=== PATIENT | female | born 1970 | race Caucasian/White ===

== ENCOUNTER 2016-06-08 17:58 | Emergency (ER) | payer MEDICAID ==
[~2016-06-08] VITALS: Ht 144.8 cm; Wt 82.0 kg
[~2016-06-08 17:58] MED LIST: LISI10TA5 PO; METF10002 PO; SITA100T6 PO
[2016-06-08] MEDS ORDERED: ONDANSETRON HCL 4MG/2ML VIAL IV STA (23:01)
[2016-06-08] MEDS ORDERED: SODIUM CHLORIDE 0.9% 1,000 ML IV ONE (23:01)
[2016-06-08] MEDS ORDERED: KETOROLAC 30MG/ML VIAL IV STA (23:01)
[2016-06-08 23:14] LABS: CLARITY URINE CLEAR (CLEAR); COLOR URINE YELLOW (YELLOW); GLUCOSE URINE NEGATIVE (NEGATIVE); KETONES URINE NEGATIVE (NEGATIVE); LEUKOCYTE ESTERASE URINE 1+ (NEGATIVE); NITRITE URINE NEGATIVE (NEGATIVE); OCCULT BLOOD URINE NEGATIVE (NEGATIVE); PH URINE 6.5 (4.5-8.0); PROTEIN URINE NEGATIVE (NEGATIVE); UROBILINOGEN URINE 0.2 E.U./dL (0.2-1.0)
[2016-06-08 23:32] LABS: RBC URINE 0-2 /hpf (0-2); SQUAMOUS EPITHELIAL CELL URINE RARE /lpf (RARE/1+)
[2016-06-08 23:33] LABS: BACTERIA URINE TRACE
[2016-06-08 23:35] LABS: CHLORIDE 102 mEq/L (98-107); EOSINOPHILS % 2.6 % (0.0-5.0); HEMATOCRIT. 41.4 % (36.0-48.0); HEMOGLOBIN. 14.2 g/dL (12.0-16.0); INDEX HEMOLYSI 1 (1-3); INDEX ICTERIC 1 (1-4); INDEX LIPEMIC 1 (1-3); LYMPHOCYTES % 30.6 % (20.0-50.0); MEAN CORPUSCULAR HEMOGLOBIN 28.9 pg (28.0-32.0); MEAN CORPUSCULAR HGB CONC 34.3 g/dL (31.0-37.0); MEAN CORPUSCULAR VOLUME 84.4 fL (81.0-99.0); MEAN PLATELET VOLUME 8.7 fl (7.4-10.4); MONOCYTES % 8.7 % (2.0-8.0); NEUTROPHILS % 57.1 % (40.0-76.0); PLATELET 208 x1000/uL (130-400); RED BLOOD CELL COUNT 4.91 mill/uL (4.2-5.4); RED CELL DISTRIBUTION WIDTH 13.3 % (11.6-14.6); WHITE BLOOD COUNT 8.2 x1000/uL (4.5-11.0)
[2016-06-08 23:39] LABS: PROTHROMBIN TIME 10.9 sec
[2016-06-08 23:43] LABS: ALANINE AMINOTRANSFERASE 28 IU/L (13-61); ALBUMIN 3.4 g/dL (3.4-5.0); ANION GAP 13; CALCIUM 9.1 mg/dL (8.5-10.1); CARBON DIOXIDE 29 mEq/L (21-32); LIPASE 148 IU/L (73-393); UREA NITROGEN BLOOD 11 mg/dL (7-21); eGFR > 60 mL/min (>60)
[2016-06-09 00:13] VITALS: BP 130/60
== END 2016-06-09 01:49 | disposition home or self-care (01) ==
LOC: ER 21:08
DX: N39.0 Urinary tract infection, site not specified (principal); E11.9 Type 2 diabetes mellitus without complications; I10 Essential (primary) hypertension; Z79.4 Long term (current) use of insulin; Z79.899 Other long term (current) drug therapy
CPT/HCPCS: 36415; 74176; 80053; 81001; 81025; 83690; 85025; 85610; 96361; 96374; 96375; 99285; J1885; J2405; J7030

== ENCOUNTER 2017-03-19 23:19 | Emergency (ER) | payer MEDICAID ==
[~2017-03-19] VITALS: Ht 157.5 cm; Wt 82.0 kg
[~2017-03-19 23:19] MED LIST changes: +SITA100T11 PO; -SITA100T6 PO
[2017-03-19 23:32] VITALS: BP 179/81
== END 2017-03-20 04:10 | disposition left against medical advice (07) ==
LOC: ER 23:19
DX: Z53.21 Procedure and treatment not carried out due to patient leaving prior to being seen by health care provider (principal)

== ENCOUNTER 2018-10-07 14:43 | Emergency (ER) | payer MEDICAID ==
[~2018-10-07] VITALS: Ht 152.4 cm; Wt 73.0 kg
[~2018-10-07 14:43] MED LIST changes: +METF-416 PO; -METF10002 PO
[2018-10-07] MEDS ORDERED: MORPHINE SULFATE 4 MG/ML CPJ (NOT FOR IM USE) IV STA (16:47)
[2018-10-07] MEDS ORDERED: SODIUM CHLORIDE 0.9% 1,000 ML IV ONE (16:47)
[2018-10-07] MEDS ORDERED: ONDANSETRON HCL 4MG/2ML INJ IV STA (16:47)
[2018-10-07] MEDS ORDERED: FAMOTIDINE 20MG/2ML VIAL IV STA (16:47)
[2018-10-07 17:07] LABS: CLARITY URINE CLEAR (CLEAR); COLOR URINE YELLOW (YELLOW); KETONES URINE 1+ (NEGATIVE); LEUKOCYTE ESTERASE URINE NEGATIVE (NEGATIVE); NITRITE URINE NEGATIVE (NEGATIVE); OCCULT BLOOD URINE TRACE (NEGATIVE); PH URINE 6.5 (4.5-8.0); PROTEIN URINE 2+ (NEGATIVE); SPECIFIC GRAVITY URINE 1.023 (1.005-1.030); UROBILINOGEN URINE 0.2 E.U./dL (0.2-1.0)
[2018-10-07 17:25] LABS: HEMATOCRIT. 45.1 % (36.0-48.0); HEMOGLOBIN. 15.6 g/dL (12.0-16.0); MEAN CORPUSCULAR HEMOGLOBIN 29.5 pg (28.0-32.0); MEAN CORPUSCULAR VOLUME 85.7 fL (81.0-99.0); MEAN PLATELET VOLUME 8.6 fl (7.4-10.4); PLATELET 199 x1000/uL (130-400); RED BLOOD CELL COUNT 5.27 mill/uL (4.2-5.4); RED CELL DISTRIBUTION WIDTH 13.7 % (11.6-14.6)
[2018-10-07 17:29] LABS: CHLORIDE 99 mEq/L (98-107)
[2018-10-07 17:34] LABS: ETHANOL BLOOD < 10 mg/dL
[2018-10-07 17:45] LABS: HCG SCREEN NEGATIVE
[2018-10-07 17:53] LABS: PLATELET ESTIMATE NORMAL
[2018-10-07 21:42] VITALS: BP 143/70
== END 2018-10-07 21:53 | disposition home or self-care (01) ==
LOC: ER 14:43
DX: K29.00 Acute gastritis without bleeding (principal)
CPT/HCPCS: 36415; 74176; 80053; 80320; 81003; 82962; 83690; 84484; 84703; 85025; 96374; 96375; 99284; J2270; J2405; J3490; J7030; G0480

== ENCOUNTER 2019-01-01 09:59 | Inpatient (IN) | payer MEDICAID ==
[~2019-01-01] VITALS: Ht 154.9 cm; Wt 74.9 kg
[2019-01-01] MEDS ORDERED: SODIUM CHLORIDE 0.9% 1,000 ML IV ONE (10:22)
[2019-01-01 10:42] LABS: BASOPHILS % 1.2 % (0.0-2.0); EOSINOPHILS % 0.4 % (0.0-5.0); HEMATOCRIT. 43.6 % (36.0-48.0); HEMOGLOBIN. 15.2 g/dL (12.0-16.0); MEAN CORPUSCULAR HEMOGLOBIN 29.7 pg (28.0-32.0); MEAN CORPUSCULAR VOLUME 85.3 fL (81.0-99.0); MEAN PLATELET VOLUME 9.3 fl (7.4-10.4); NEUTROPHILS % 76.4 % (40.0-76.0); PLATELET 245 x1000/uL (130-400); RED BLOOD CELL COUNT 5.11 mill/uL (4.2-5.4); RED CELL DISTRIBUTION WIDTH 13.7 % (11.6-14.6)
[2019-01-01 10:46] LABS: CHLORIDE 96 mEq/L (98-107)
[2019-01-01 10:49] LABS: HCG SCREEN NEGATIVE; PROTHROMBIN TIME 10.1 sec (9.6-11.0)
[2019-01-01 10:50] LABS: ETHANOL BLOOD < 10 mg/dL
[2019-01-01 10:53] LABS: LDL CHOLESTEROL 107 mg/dL (5-100)
[2019-01-01] MEDS ORDERED: LABETALOL 5MG/ML SYR 20 MG/4 ML SYRINGE IV ONE (11:15)
[2019-01-01] MEDS ORDERED: ASPIRIN 325MG TABLET PO ONE (11:15)
[2019-01-01 11:37] LABS: C REACTIVE PROTEIN QUANT 5.7 mg/L (0.0-3.0)
[2019-01-01 11:40] LABS: CREATINE KINASE MB FRACTION 1.6 ng/mL (0.5-3.6)
[2019-01-01] MEDS ORDERED: ASPIRIN 300MG SUPP PR ONE (11:45)
[2019-01-01] MEDS ORDERED: INSULIN REGULAR (HUMULIN R) 300UNITS/3ML IV ONE (12:45)
[2019-01-01] MEDS ORDERED: IOHEXOL-350 100 ML BOTTLE ONE (13:45)
[2019-01-01] MEDS ORDERED: GUAIFENESIN 200MG/10ML SUGAR FREE UDC PO PRN (14:15)
[2019-01-01] MEDS ORDERED: IPRATROPIUM/ALBUTEROL 0.5-3(2.5)MG/3ML NEB NEB PRN (14:15)
[2019-01-01] MEDS ORDERED: NA PHOS,M-B/NA PHOS,DI-BA ENEMA 118ML PR PRN (14:15)
[2019-01-01] MEDS ORDERED: MAGNESIUM/ALUMINUM HYDROXIDE/SIMETHICONE 30ML UDC PO PRN (14:15)
[2019-01-01] MEDS ORDERED: CLONIDINE 0.1MG TABLET PO PRN (14:15)
[2019-01-01] MEDS ORDERED: ONDANSETRON HCL 4MG/2ML INJ IV PRN (14:15)
[2019-01-01] MEDS ORDERED: DEXTROSE 50% WATER 50ML SYRINGE IV PRN (14:15)
[2019-01-01] MEDS ORDERED: NITROGLYCERIN 0.4MG TABLET SL SL PRN (14:15)
[2019-01-01] MEDS ORDERED: DOCUSATE SODIUM 100MG CAPSULE PO PRN (14:15)
[2019-01-01 16:50] LABS: VITAMIN B12 SERUM > 2000.0 pg/mL (211-911)
[2019-01-01 17:00] VITALS: BP 132/65
[2019-01-01] MEDS: BLOOD SUGAR DIAGNOSTIC STRIP TEST SCH ×2 (17:25→21:20)
[2019-01-01] MEDS: CLOPIDOGREL 75MG TABLET PO SCH (17:43)
[2019-01-01] MEDS: ENOXAPARIN 40MG/0.4ML SYR SUBCUT SCH (17:45)
[2019-01-01] MEDS: INSULIN LISPRO 100 UNITS/ML SUBCUT SCH ×2 (17:47→21:30)
[2019-01-01 18:00] VITALS: BP 142/88
[2019-01-01 20:00] VITALS: BP 119/71
[2019-01-01] MEDS: FAMOTIDINE 20MG TABLET PO SCH (21:20)
[2019-01-01] MEDS: ATORVASTATIN CALCIUM 10MG TABLET PO SCH (21:20)
[2019-01-01 22:00] VITALS: BP 138/103
[2019-01-01] MEDS ORDERED: INSULIN GLARGINE UD 100 UNITS/ML SYR SUBCUT SCH (22:00)
[2019-01-01] MEDS: INSULIN GLARGINE UD 100 UNITS/ML SYR SUBCUT SCH (22:39)
[2019-01-02] VITALS (11 sets, daily range): BP systolic 132–158; BP diastolic 70–92
[2019-01-02] MEDS: ZOLPIDEM TARTRATE 5MG TABLET PO PRN ×2 (00:54→22:29)
[2019-01-02] MEDS: BLOOD SUGAR DIAGNOSTIC STRIP TEST SCH ×4 (08:29→20:28)
[2019-01-02] MEDS: INSULIN LISPRO 100 UNITS/ML SUBCUT SCH ×4 (08:37→20:42)
[2019-01-02] MEDS: CLOPIDOGREL 75MG TABLET PO SCH (08:39)
[2019-01-02] MEDS: FAMOTIDINE 20MG TABLET PO SCH ×2 (08:39→20:27)
[2019-01-02] MEDS: ACETAMINOPHEN 325MG TABLET PO PRN (14:50)
[2019-01-02] MEDS: ENOXAPARIN 40MG/0.4ML SYR SUBCUT SCH (15:59)
[2019-01-02 19:19] LABS: T4 FREE 1.37 ng/dL (0.76-1.46)
[2019-01-02] MEDS: ATORVASTATIN CALCIUM 10MG TABLET PO SCH (20:27)
[2019-01-02] MEDS: INSULIN GLARGINE UD 100 UNITS/ML SYR SUBCUT SCH (22:17)
[2019-01-03] VITALS (13 sets, daily range): BP systolic 104–173; BP diastolic 63–101
[2019-01-03] MEDS: BLOOD SUGAR DIAGNOSTIC STRIP TEST SCH ×4 (07:30→21:30)
[2019-01-03] MEDS: CLOPIDOGREL 75MG TABLET PO SCH (08:32)
[2019-01-03] MEDS: FAMOTIDINE 20MG TABLET PO SCH ×2 (08:32→21:30)
[2019-01-03] MEDS: INSULIN LISPRO 100 UNITS/ML SUBCUT SCH ×4 (08:35→21:52)
[2019-01-03] MEDS: ACETAMINOPHEN 325MG TABLET PO PRN ×2 (11:07→21:40)
[2019-01-03] MEDS: ENOXAPARIN 40MG/0.4ML SYR SUBCUT SCH (15:55)
[2019-01-03 17:59] LABS: *AMPHETAMINES SCREEN URINE NEGATIVE (NEGATIVE); *BARBITURATES SCREEN URINE NEGATIVE (NEGATIVE); *BENZODIAZEPINES SCREEN URINE NEGATIVE (NEGATIVE); *COCAINE SCREEN URINE NEGATIVE (NEGATIVE); METHADONE URINE SCREEN NEGATIVE (NEGATIVE); OPIATES URINE SCREEN NEGATIVE (NEGATIVE)
[2019-01-03 18:00] LABS: CANNABINOID URINE SCREEN NEGATIVE (NEGATIVE); PHENCYCLIDINE URINE SCREEN NEGATIVE (NEGATIVE)
[2019-01-03] MEDS: ATORVASTATIN CALCIUM 40MG TABLET PO SCH (21:30)
[2019-01-03] MEDS: ZOLPIDEM TARTRATE 5MG TABLET PO PRN (21:40)
[2019-01-03] MEDS: INSULIN GLARGINE UD 100 UNITS/ML SYR SUBCUT SCH (21:51)
[2019-01-04] VITALS (10 sets, daily range): BP systolic 101–157; BP diastolic 71–92
[2019-01-04] MEDS: BLOOD SUGAR DIAGNOSTIC STRIP TEST SCH ×4 (07:43→20:06)
[2019-01-04] MEDS: CLOPIDOGREL 75MG TABLET PO SCH (08:46)
[2019-01-04] MEDS: INSULIN LISPRO 100 UNITS/ML SUBCUT SCH ×4 (08:46→20:26)
[2019-01-04] MEDS: FAMOTIDINE 20MG TABLET PO SCH ×2 (08:46→20:02)
[2019-01-04] MEDS: KETOROLAC 15MG/ML VIAL IV PRN (11:11)
[2019-01-04 12:11] LABS: BASOPHILS % 1.1 % (0.0-2.0); EOSINOPHILS % 5.2 % (0.0-5.0); HEMATOCRIT. 43.8 % (36.0-48.0); HEMOGLOBIN. 15.2 g/dL (12.0-16.0); LYMPHOCYTES % 23.3 % (20.0-50.0); MEAN CORPUSCULAR HEMOGLOBIN 29.7 pg (28.0-32.0); MEAN CORPUSCULAR VOLUME 85.8 fL (81.0-99.0); MEAN PLATELET VOLUME 9.3 fl (7.4-10.4); NEUTROPHILS % 60.4 % (40.0-76.0); PLATELET 203 x1000/uL (130-400); RED BLOOD CELL COUNT 5.11 mill/uL (4.2-5.4); RED CELL DISTRIBUTION WIDTH 13.8 % (11.6-14.6)
[2019-01-04 12:26] LABS: CHLORIDE 99 mEq/L (98-107)
[2019-01-04 12:32] LABS: PHOSPHORUS 2.9 mg/dL (2.5-4.9)
[2019-01-04] MEDS: LISINOPRIL 20MG TABLET PO SCH (13:13)
[2019-01-04] MEDS: LORAZEPAM 2MG/ML CPJ IV PRN ×2 (14:39→20:05)
[2019-01-04] MEDS: ENOXAPARIN 40MG/0.4ML SYR SUBCUT SCH (17:51)
[2019-01-04] MEDS: BUTALBITAL/ACETAMINOPHEN/CAFFEINE 50/325/40MG TABLET PO PRN ×2 (17:52→20:05)
[2019-01-04] MEDS: ATORVASTATIN CALCIUM 40MG TABLET PO SCH (20:06)
[2019-01-04] MEDS: INSULIN GLARGINE UD 100 UNITS/ML SYR SUBCUT SCH (21:47)
[2019-01-05] VITALS (12 sets, daily range): BP systolic 97–150; BP diastolic 61–88
[2019-01-05] MEDS: BLOOD SUGAR DIAGNOSTIC STRIP TEST SCH ×4 (07:37→21:00)
[2019-01-05] MEDS: CLOPIDOGREL 75MG TABLET PO SCH (09:03)
[2019-01-05] MEDS: FAMOTIDINE 20MG TABLET PO SCH ×2 (09:04→23:01)
[2019-01-05] MEDS: LISINOPRIL 20MG TABLET PO SCH (09:04)
[2019-01-05] MEDS: INSULIN LISPRO 100 UNITS/ML SUBCUT SCH ×4 (09:04→23:13)
[2019-01-05 13:06] LABS: ANTI-CARDIOLIPIN AB IGA < 9 APL U/mL (0-11); ANTI-CARDIOLIPIN AB IGG < 9 GPL U/mL (0-14); ANTI-CARDIOLIPIN AB IGM < 9 MPL U/mL (0-12)
[2019-01-05] MEDS: LACTULOSE 20G/30ML UDC PO SCH ×3 (13:22→16:35)
[2019-01-05] MEDS: LORAZEPAM 2MG/ML CPJ IV PRN (14:13)
[2019-01-05] MEDS: ENOXAPARIN 40MG/0.4ML SYR SUBCUT SCH (16:36)
[2019-01-05] MEDS: KETOROLAC 15MG/ML VIAL IV PRN (22:53)
[2019-01-05] MEDS: ATORVASTATIN CALCIUM 40MG TABLET PO SCH (23:01)
[2019-01-05] MEDS: INSULIN GLARGINE UD 100 UNITS/ML SYR SUBCUT SCH (23:14)
[2019-01-06] VITALS (12 sets, daily range): BP systolic 91–154; BP diastolic 54–99
[2019-01-06] MEDS: BLOOD SUGAR DIAGNOSTIC STRIP TEST SCH ×4 (07:31→21:30)
[2019-01-06] MEDS: FAMOTIDINE 20MG TABLET PO SCH ×2 (08:18→21:29)
[2019-01-06] MEDS: LISINOPRIL 20MG TABLET PO SCH (08:18)
[2019-01-06] MEDS: INSULIN LISPRO 100 UNITS/ML SUBCUT SCH ×4 (08:19→21:30)
[2019-01-06] MEDS: ACETAMINOPHEN 325MG TABLET PO PRN ×2 (10:15→18:16)
[2019-01-06] MEDS: LORAZEPAM 2MG/ML CPJ IV PRN (12:22)
[2019-01-06] MEDS ORDERED: ALPRAZOLAM 0.25 MG TABLET PO PRN (13:45)
[2019-01-06] MEDS: SODIUM CHLORIDE 0.9% INJ 3ML FLUSH IVF SCH ×2 (14:53→22:00)
[2019-01-06] MEDS: ENOXAPARIN 40MG/0.4ML SYR SUBCUT SCH (16:00)
[2019-01-06 19:03] LABS: PLT FUNCT COLLAGEN/EPINEPHRINE 212 CT(SEC) (76-176)
[2019-01-06 19:15] LABS: PTLFUNC COLLAGEN/ADP 75 CT(SEC) (60-115)
[2019-01-06] MEDS ORDERED: BISACODYL 10MG SUPP PR PRN (21:00)
[2019-01-06] MEDS ORDERED: DOCUSATE SODIUM 100MG CAPSULE PO SCH (21:00)
[2019-01-06] MEDS: ATORVASTATIN CALCIUM 40MG TABLET PO SCH (21:29)
[2019-01-06] MEDS: INSULIN GLARGINE UD 100 UNITS/ML SYR SUBCUT SCH (22:09)
[2019-01-07] VITALS (37 sets, daily range): BP systolic 88–159; BP diastolic 44–77
[2019-01-07] MEDS ORDERED: DEXT 5%/0.45% NACL 1000ML 1,000 ML IV SCH
[2019-01-07] MEDS: SODIUM CHLORIDE 0.9% INJ 3ML FLUSH IVF SCH ×2 (06:57→22:27)
[2019-01-07] MEDS: BLOOD SUGAR DIAGNOSTIC STRIP TEST SCH ×3 (08:13→21:14)
[2019-01-07] MEDS: INSULIN LISPRO 100 UNITS/ML SUBCUT SCH ×3 (08:26→21:15)
[2019-01-07] MEDS ORDERED: BACITRACIN 50,000 UNITS/VIAL ONE (08:36)
[2019-01-07] MEDS ORDERED: LIDOCAINE HCL 1% 20ML VIAL (Pyxis) INJ ONE (08:36)
[2019-01-07] MEDS ORDERED: THROMBIN (BOVINE) 5000 UNITS/VIAL TOP ONE (08:36)
[2019-01-07] MEDS ORDERED: HEPARIN SODIUM 1,000 UNIT/1ML VIAL IV ONE (08:37)
[2019-01-07] MEDS: FAMOTIDINE 20MG TABLET PO SCH ×2 (10:10→21:00)
[2019-01-07] MEDS: LISINOPRIL 20MG TABLET PO SCH (10:12)
[2019-01-07] MEDS ORDERED: BUPIVACAINE HCL/PF 0.5% (5MG/ML) 10ML ONE (10:54)
[2019-01-07] MEDS ORDERED: ROCURONIUM BROMIDE 10MG/ML VIAL 5ML IV ONE (11:27)
[2019-01-07] MEDS ORDERED: FENTANYL CITRATE/PF 50MCG/ML 2ML VIAL ONE (11:27)
[2019-01-07] MEDS ORDERED: NEOSTIGMINE METHYLSULFATE 1MG/ML 10 ML VIAL ONE (11:27)
[2019-01-07] MEDS ORDERED: PROPOFOL 200MG/20ML VIAL IV ONE (11:28)
[2019-01-07] MEDS ORDERED: MIDAZOLAM HCL 2 MG/2 ML VIAL ONE (11:28)
[2019-01-07] MEDS ORDERED: GLYCOPYRROLATE 0.2 MG/ML 2ML VIAL ONE (11:28)
[2019-01-07] MEDS ORDERED: ONDANSETRON HCL 4MG/2ML INJ ONE (11:31)
[2019-01-07] MEDS ORDERED: DEXAMETHASONE 4MG/ML 1ML VIAL ONE (11:31)
[2019-01-07] MEDS ORDERED: MEPERIDINE HCL/PF 25MG/ML CPJ IV PRN (13:00)
[2019-01-07] MEDS ORDERED: LABETALOL 5MG/ML SYR 20 MG/4 ML SYRINGE IV PRN (13:00)
[2019-01-07] MEDS ORDERED: HYDROMORPHONE HCL/PF 2MG/ML CPJ IV PRN (13:00)
[2019-01-07] MEDS ORDERED: ONDANSETRON HCL 4MG/2ML INJ IV PRN ×2 (13:00→14:45)
[2019-01-07 13:07] LABS: ANTI-THROMBIN ACTIVITY 103 % (75-135); DRVVT LA 47.3 sec (0.0-47.0); DRVVT MIX LA 42.5 sec (0.0-47.0); LUPUS ANTICOAG INTERPRETATION Comment: (.); PROTEIN C FUNCTIONAL > 199 % (73-180); PTT-LA 36.5 sec (0.0-51.9)
[2019-01-07] MEDS ORDERED: DILTIAZEM HCL 5MG/ML 5ML VIAL IV NR (13:15)
[2019-01-07] MEDS ORDERED: DILTIAZEM 125MG in DEXTROSE 5% WATER 125ML IV PRN (13:30)
[2019-01-07] MEDS ORDERED: SKIN ADHESIVE 0.7 GM EA TOP ONE (14:13)
[2019-01-07] MEDS ORDERED: SODIUM CHLORIDE 0.9% 500 ML IV PRN (14:31)
[2019-01-07] MEDS ORDERED: HYDROMORPHONE HCL/PF 2MG/ML (OR) ONE (14:33)
[2019-01-07] MEDS ORDERED: ACETAMINOPHEN 325MG TABLET PO PRN (14:45)
[2019-01-07 15:09] LABS: BG BASE EXCESS -1.6 mmol/L (-2.0-2.0); BG CARBOXYHEMOGLOBIN 0.1 % (0.5-1.5); BG FRACTION INSPIRED OXYGEN 60; BG HCO3 ACT 24.2 mmol/L (22.0-26.0); BG METHEMOGLOBIN 0.3 % (0.0-1.5); BG OXYHEMOGLOBIN 98.6 % (94.0-97.0); BG PH 7.349 (7.350-7.450); BG PO2 219.4 mmHg (75.0-100.0); BG SAMPLE SITE A-LINE; BG TOTAL HEMOGLOBIN 13.3 g/dL (12.0-18.0); BG VENT MODE MASK - SIMPLE
[2019-01-07] MEDS ORDERED: ALBUMIN HUMAN 25GM/100ML (25%) IV NR (15:30)
[2019-01-07] MEDS ORDERED: ALBUMIN HUMAN 12.5G/250ML (5%) IV NR (16:15)
[2019-01-07] MEDS: DOCUSATE SODIUM 100MG CAPSULE PO SCH (17:00)
[2019-01-07 17:11] LABS: PROTHROMBIN TIME 10.8 sec (9.6-11.0)
[2019-01-07] MEDS: DEXT 5%/0.45% NACL 1000ML 1,000 ML IV SCH (17:45)
[2019-01-07] MEDS: MORPHINE SULFATE 2 MG/ML CPJ (NOT FOR IM USE) IV PRN ×2 (18:55→22:12)
[2019-01-07] MEDS: MAGNESIUM HYDROXIDE 400MG/5ML 30ML UDC PO SCH ×2 (19:30→23:30)
[2019-01-07] MEDS: IPRATROPIUM/ALBUTEROL 0.5-3(2.5)MG/3ML NEB HHN SCH (20:04)
[2019-01-07] MEDS: CEFAZOLIN 1000MG PREMIX 50 ML IV SCH (20:25)
[2019-01-07] MEDS: ATORVASTATIN CALCIUM 40MG TABLET PO SCH (21:00)
[2019-01-07] MEDS: INSULIN GLARGINE UD 100 UNITS/ML SYR SUBCUT SCH (22:12)
[2019-01-08] VITALS (47 sets, daily range): BP systolic 90–161; BP diastolic 54–89
[2019-01-08] MEDS: MORPHINE SULFATE 2 MG/ML CPJ (NOT FOR IM USE) IV PRN ×4 (00:18→14:51)
[2019-01-08] MEDS: LORAZEPAM 2MG/ML CPJ IV PRN (00:19)
[2019-01-08] MEDS: IPRATROPIUM/ALBUTEROL 0.5-3(2.5)MG/3ML NEB HHN SCH ×6 (01:02→22:10)
[2019-01-08] MEDS: MAGNESIUM HYDROXIDE 400MG/5ML 30ML UDC PO SCH ×4 (03:30→14:42)
[2019-01-08] MEDS: CEFAZOLIN 1000MG PREMIX 50 ML IV SCH ×2 (04:09→11:39)
[2019-01-08 05:44] LABS: BASOPHILS % 0.4 % (0.0-2.0); EOSINOPHILS % 1.3 % (0.0-5.0); HEMATOCRIT. 37.1 % (36.0-48.0); HEMOGLOBIN. 12.6 g/dL (12.0-16.0); LYMPHOCYTES % 12.7 % (20.0-50.0); MEAN CORPUSCULAR HEMOGLOBIN 29.7 pg (28.0-32.0); MEAN CORPUSCULAR VOLUME 87.6 fL (81.0-99.0); MONOCYTES % 8.4 % (2.0-8.0); NEUTROPHILS % 77.2 % (40.0-76.0); PLATELET 201 x1000/uL (130-400); RED BLOOD CELL COUNT 4.23 mill/uL (4.2-5.4); RED CELL DISTRIBUTION WIDTH 13.8 % (11.6-14.6)
[2019-01-08 05:47] LABS: CHLORIDE 104 mEq/L (98-107)
[2019-01-08] MEDS: SODIUM CHLORIDE 0.9% INJ 3ML FLUSH IVF SCH ×3 (06:04→22:12)
[2019-01-08] MEDS: DEXT 5%/0.45% NACL 1000ML 1,000 ML IV SCH (07:57)
[2019-01-08] MEDS: BLOOD SUGAR DIAGNOSTIC STRIP TEST SCH ×4 (08:05→21:00)
[2019-01-08] MEDS: DOCUSATE SODIUM 100MG CAPSULE PO SCH ×2 (08:05→18:06)
[2019-01-08] MEDS: FAMOTIDINE 20MG TABLET PO SCH ×2 (08:06→21:00)
[2019-01-08] MEDS: LISINOPRIL 20MG TABLET PO SCH (08:06)
[2019-01-08] MEDS: INSULIN LISPRO 100 UNITS/ML SUBCUT SCH ×4 (08:09→21:00)
[2019-01-08] MEDS: OXYCODONE HCL/ACETAMINOPHEN 5/325MG TABLET PO PRN (09:46)
[2019-01-08] MEDS: ATORVASTATIN CALCIUM 40MG TABLET PO SCH (21:00)
[2019-01-08] MEDS: INSULIN GLARGINE UD 100 UNITS/ML SYR SUBCUT SCH (22:13)
[2019-01-09] VITALS (32 sets, daily range): BP systolic 111–176; BP diastolic 60–99
[2019-01-09] MEDS: DEXT 5%/0.45% NACL 1000ML 1,000 ML IV SCH ×2 (03:00→16:38)
[2019-01-09] MEDS: OXYCODONE HCL/ACETAMINOPHEN 5/325MG TABLET PO PRN ×3 (03:00→21:45)
[2019-01-09] MEDS: IPRATROPIUM/ALBUTEROL 0.5-3(2.5)MG/3ML NEB HHN SCH ×6 (04:09→21:16)
[2019-01-09] MEDS: SODIUM CHLORIDE 0.9% INJ 3ML FLUSH IVF SCH ×3 (05:18→22:44)
[2019-01-09 06:07] LABS: BASOPHILS % 0.4 % (0.0-2.0); HEMATOCRIT. 36.7 % (36.0-48.0); HEMOGLOBIN. 12.4 g/dL (12.0-16.0); LYMPHOCYTES % 12.2 % (20.0-50.0); MEAN CORPUSCULAR HEMOGLOBIN 29.6 pg (28.0-32.0); MEAN CORPUSCULAR VOLUME 87.5 fL (81.0-99.0); MEAN PLATELET VOLUME 9.6 fl (7.4-10.4); MONOCYTES % 11.2 % (2.0-8.0); NEUTROPHILS % 75.2 % (40.0-76.0); PLATELET 195 x1000/uL (130-400); RED CELL DISTRIBUTION WIDTH 13.9 % (11.6-14.6)
[2019-01-09 06:15] LABS: CHLORIDE 104 mEq/L (98-107)
[2019-01-09] MEDS: BLOOD SUGAR DIAGNOSTIC STRIP TEST SCH ×4 (07:40→21:54)
[2019-01-09] MEDS: LISINOPRIL 20MG TABLET PO SCH (07:48)
[2019-01-09] MEDS: FAMOTIDINE 20MG TABLET PO SCH ×2 (07:48→22:43)
[2019-01-09] MEDS: DOCUSATE SODIUM 100MG CAPSULE PO SCH ×2 (07:48→16:33)
[2019-01-09] MEDS: INSULIN LISPRO 100 UNITS/ML SUBCUT SCH ×4 (07:49→22:45)
[2019-01-09] MEDS ORDERED: ENOXAPARIN 40MG/0.4ML SYR SUBCUT SCH (08:05)
[2019-01-09] MEDS: ENOXAPARIN 40MG/0.4ML SYR SUBCUT SCH (09:08)
[2019-01-09] MEDS: MAGNESIUM HYDROXIDE 400MG/5ML 30ML UDC PO SCH ×2 (16:32→22:39)
[2019-01-09] MEDS: ACETAMINOPHEN 325MG TABLET PO PRN (20:44)
[2019-01-09] MEDS: CLOPIDOGREL 75MG TABLET PO SCH (20:58)
[2019-01-09] MEDS: ATORVASTATIN CALCIUM 40MG TABLET PO SCH (22:43)
[2019-01-09] MEDS: INSULIN GLARGINE UD 100 UNITS/ML SYR SUBCUT SCH (22:46)
[2019-01-10] VITALS (11 sets, daily range): BP systolic 117–157; BP diastolic 64–91
[2019-01-10] MEDS: IPRATROPIUM/ALBUTEROL 0.5-3(2.5)MG/3ML NEB HHN SCH ×6 (00:26→20:08)
[2019-01-10] MEDS: MAGNESIUM HYDROXIDE 400MG/5ML 30ML UDC PO SCH ×5 (00:56→17:56)
[2019-01-10 04:10] LABS: 25-HYDROXY VITAMIN D3 13 ng/mL (.)
[2019-01-10] MEDS: OXYCODONE HCL/ACETAMINOPHEN 5/325MG TABLET PO PRN (05:54)
[2019-01-10] MEDS: SODIUM CHLORIDE 0.9% INJ 3ML FLUSH IVF SCH ×3 (05:55→21:46)
[2019-01-10] MEDS: BLOOD SUGAR DIAGNOSTIC STRIP TEST SCH ×4 (06:32→21:38)
[2019-01-10] MEDS: LISINOPRIL 20MG TABLET PO SCH (08:30)
[2019-01-10] MEDS: DOCUSATE SODIUM 100MG CAPSULE PO SCH ×2 (08:30→17:56)
[2019-01-10] MEDS: CLOPIDOGREL 75MG TABLET PO SCH (08:30)
[2019-01-10] MEDS: FAMOTIDINE 20MG TABLET PO SCH ×2 (08:30→21:46)
[2019-01-10] MEDS: ENOXAPARIN 40MG/0.4ML SYR SUBCUT SCH (08:31)
[2019-01-10] MEDS: INSULIN LISPRO 100 UNITS/ML SUBCUT SCH ×4 (08:32→21:45)
[2019-01-10] MEDS: DEXT 5%/0.45% NACL 1000ML 1,000 ML IV SCH (09:11)
[2019-01-10] MEDS: ACETAMINOPHEN 325MG TABLET PO PRN ×3 (11:30→23:00)
[2019-01-10] MEDS: ATORVASTATIN CALCIUM 40MG TABLET PO SCH (21:46)
[2019-01-10] MEDS: INSULIN GLARGINE UD 100 UNITS/ML SYR SUBCUT SCH (21:46)
[2019-01-11] VITALS (13 sets, daily range): BP systolic 103–165; BP diastolic 51–98
[2019-01-11] MEDS: OXYCODONE HCL/ACETAMINOPHEN 5/325MG TABLET PO PRN ×2 (00:28→05:33)
[2019-01-11] MEDS: IPRATROPIUM/ALBUTEROL 0.5-3(2.5)MG/3ML NEB HHN SCH ×6 (01:06→20:56)
[2019-01-11] MEDS: DEXT 5%/0.45% NACL 1000ML 1,000 ML IV SCH ×2 (01:28→15:07)
[2019-01-11] MEDS: BLOOD SUGAR DIAGNOSTIC STRIP TEST SCH ×4 (06:09→20:55)
[2019-01-11] MEDS: SODIUM CHLORIDE 0.9% INJ 3ML FLUSH IVF SCH ×3 (06:27→21:40)
[2019-01-11] MEDS: FAMOTIDINE 20MG TABLET PO SCH ×2 (08:52→21:38)
[2019-01-11] MEDS: ENOXAPARIN 40MG/0.4ML SYR SUBCUT SCH (08:53)
[2019-01-11] MEDS: DOCUSATE SODIUM 100MG CAPSULE PO SCH ×2 (08:53→17:28)
[2019-01-11] MEDS: LISINOPRIL 20MG TABLET PO SCH (08:53)
[2019-01-11] MEDS: CLOPIDOGREL 75MG TABLET PO SCH (08:53)
[2019-01-11] MEDS: INSULIN LISPRO 100 UNITS/ML SUBCUT SCH ×4 (08:54→21:39)
[2019-01-11] MEDS: MORPHINE SULFATE 2 MG/ML CPJ (NOT FOR IM USE) IV PRN (14:09)
[2019-01-11] MEDS: ACETAMINOPHEN 325MG TABLET PO PRN (18:20)
[2019-01-11] MEDS: ATORVASTATIN CALCIUM 40MG TABLET PO SCH (21:38)
[2019-01-11] MEDS: INSULIN GLARGINE UD 100 UNITS/ML SYR SUBCUT SCH (21:40)
[2019-01-12] VITALS (10 sets, daily range): BP systolic 102–143; BP diastolic 51–86
[2019-01-12] MEDS: IPRATROPIUM/ALBUTEROL 0.5-3(2.5)MG/3ML NEB HHN SCH ×7 (01:01→23:50)
[2019-01-12] MEDS: OXYCODONE HCL/ACETAMINOPHEN 5/325MG TABLET PO PRN ×2 (04:22→17:36)
[2019-01-12] MEDS: BLOOD SUGAR DIAGNOSTIC STRIP TEST SCH ×4 (06:56→21:17)
[2019-01-12] MEDS: SODIUM CHLORIDE 0.9% INJ 3ML FLUSH IVF SCH ×3 (07:01→22:06)
[2019-01-12 08:16] LABS: HEMATOCRIT 36.8 % (36.0-48.0); HEMOGLOBIN 12.4 g/dL (12.0-16.0); MEAN CORPUSCULAR HEMOGLOBIN 29.4 pg (28.0-32.0); MEAN CORPUSCULAR VOLUME 87.1 fL (81.0-99.0); PLATELET 281 x1000/uL (130-400); RED BLOOD CELL COUNT 4.23 mill/uL (4.2-5.4); RED CELL DISTRIBUTION WIDTH 13.6 % (11.6-14.6)
[2019-01-12 08:29] LABS: CHLORIDE 105 mEq/L (98-107)
[2019-01-12] MEDS: ENOXAPARIN 40MG/0.4ML SYR SUBCUT SCH (08:39)
[2019-01-12] MEDS: FAMOTIDINE 20MG TABLET PO SCH ×2 (08:39→20:54)
[2019-01-12] MEDS: CLOPIDOGREL 75MG TABLET PO SCH (08:39)
[2019-01-12] MEDS: DOCUSATE SODIUM 100MG CAPSULE PO SCH ×2 (08:39→17:33)
[2019-01-12] MEDS: INSULIN LISPRO 100 UNITS/ML SUBCUT SCH ×4 (08:40→21:07)
[2019-01-12] MEDS: LISINOPRIL 20MG TABLET PO SCH (08:40)
[2019-01-12] MEDS ORDERED: ERGOCALCIFEROL 50000UNITS CAPSULE PO SCH (14:00)
[2019-01-12] MEDS ORDERED: OXYCODONE HCL/ACETAMINOPHEN 5/325MG TABLET PO PRN (17:15)
[2019-01-12] MEDS: ATORVASTATIN CALCIUM 40MG TABLET PO SCH (20:54)
[2019-01-12] MEDS: INSULIN GLARGINE UD 100 UNITS/ML SYR SUBCUT SCH (21:08)
[2019-01-13] VITALS (7 sets, daily range): BP systolic 105–146; BP diastolic 55–86
[2019-01-13] MEDS: IPRATROPIUM/ALBUTEROL 0.5-3(2.5)MG/3ML NEB HHN SCH ×4 (04:05→17:22)
[2019-01-13] MEDS: OXYCODONE HCL/ACETAMINOPHEN 5/325MG TABLET PO PRN (04:40)
[2019-01-13] MEDS: SODIUM CHLORIDE 0.9% INJ 3ML FLUSH IVF SCH ×2 (06:57→14:50)
[2019-01-13] MEDS: BLOOD SUGAR DIAGNOSTIC STRIP TEST SCH ×3 (07:49→17:20)
[2019-01-13] MEDS: INSULIN LISPRO 100 UNITS/ML SUBCUT SCH ×3 (07:49→17:50)
[2019-01-13] MEDS: ENOXAPARIN 40MG/0.4ML SYR SUBCUT SCH (09:12)
[2019-01-13] MEDS: FAMOTIDINE 20MG TABLET PO SCH (09:12)
[2019-01-13] MEDS: CLOPIDOGREL 75MG TABLET PO SCH (09:12)
[2019-01-13] MEDS: DOCUSATE SODIUM 100MG CAPSULE PO SCH ×2 (09:12→18:03)
[2019-01-13] MEDS: LISINOPRIL 20MG TABLET PO SCH (09:13)
== END 2019-01-13 20:58 | DRG 24 ==
LOC: ER 09:59 → 5EST 13:34 → EDBEDREQ 13:43 → EDBEDREQTM 13:45 → ENRESERV 15:23 → 5EST 22:31 → CVICU 01-07 15:15 → 3WST 01-09 18:30 → 6EST 01-12 11:24
PROVIDERS: ADMIT Internal Medicine; ATTEND Internal Medicine
PROC: 03CL0ZZ Extirpation of Matter from Left Internal Carotid Artery, Open Approach (ICD-10-PCS; principal; 2019-01-07)
PROC: 03UL0KZ Supplement Left Internal Carotid Artery with Nonautologous Tissue Substitute, Open Approach (ICD-10-PCS; 2019-01-07)
DX: I63.9 Cerebral infarction, unspecified (principal); E11.65 Type 2 diabetes mellitus with hyperglycemia; G81.91 Hemiplegia, unspecified affecting right dominant side; R13.10 Dysphagia, unspecified; E87.1 Hypo-osmolality and hyponatremia; I10 Essential (primary) hypertension; R41.4 Neurologic neglect syndrome; E78.00 Pure hypercholesterolemia, unspecified; E78.1 Pure hyperglyceridemia; E78.5 Hyperlipidemia, unspecified; I65.22 Occlusion and stenosis of left carotid artery; R47.01 Aphasia; E55.9 Vitamin D deficiency, unspecified; E66.9 Obesity, unspecified; F41.9 Anxiety disorder, unspecified; Z91.14 Patient's other noncompliance with medication regimen; Z79.4 Long term (current) use of insulin; Z79.899 Other long term (current) drug therapy; Z68.31 Body mass index [BMI] 31.0-31.9, adult
CPT/HCPCS: 36415; 36600; 70496; 70498; 70544; 70551; 71045; 73706; 74018; 80048; 80061; 80305; 80320; 81400; 81403; 81407; 81479; 82306; 82375; 82550; 82553; 82607; 82746; 82805; 82962; 83036; 83540; 83550; 83721; 83735; 83880; 84100; 84439; 84443; 84481; 84484; 84703; 85027; 85300; 85303; 85306; 85576; 85613; 85651; 85732; 86140; 86147; 86850; 86900; 88304; 88311; 92523; 92610; 93005; 93306; 93880; 93970; 94640; 95925; 95926; 96361; 96374; 96375; 97112; 97162; 97164; 97166; 97168; 97530; 99291; C1758; J0690; J1100; J1170; J1644; J1650; J1815; J1885; J2060; J2250; J2270; J2405; J2704; J2710; J3010; J3490; J7030; J7060; J7620; P9047; Q9967; G0480

== ENCOUNTER 2019-03-10 20:00 | Inpatient (IN) | payer MEDICAID ==
[~2019-03-10] VITALS: Ht 154.9 cm; Wt 72.8 kg
[2019-03-10 21:49] LABS: BASOPHILS % 0.6 % (0.0-2.0); EOSINOPHILS % 1.4 % (0.0-5.0); HEMATOCRIT. 34.9 % (36.0-48.0); LYMPHOCYTES % 11.9 % (20.0-50.0); MEAN CORPUSCULAR VOLUME 87.8 fL (81.0-99.0); NEUTROPHILS % 79.1 % (40.0-76.0); PLATELET 247 x1000/uL (130-400); RED BLOOD CELL COUNT 3.98 mill/uL (4.2-5.4); RED CELL DISTRIBUTION WIDTH 14.9 % (11.6-14.6)
[2019-03-10 21:54] LABS: CHLORIDE 110 mEq/L (98-107)
[2019-03-10 21:56] LABS: HCG SCREEN NEGATIVE; PROTHROMBIN TIME 10.5 sec (9.6-11.0)
[2019-03-10 21:59] LABS: ETHANOL BLOOD < 10 mg/dL
[2019-03-10 22:01] LABS: LDL CHOLESTEROL 82 mg/dL (5-100)
[2019-03-10] MEDS ORDERED: SODIUM CHLORIDE 0.9% 1,000 ML IV ONE (22:30)
[2019-03-10] MEDS ORDERED: ASPIRIN 325MG EC TABLET PO NR (22:30)
[2019-03-11] VITALS (7 sets, daily range): BP systolic 126–150; BP diastolic 50–91
[2019-03-11] MEDS ORDERED: IOHEXOL-350 100 ML BOTTLE ONE (03:04)
[2019-03-11 06:20] LABS: CLARITY URINE CLEAR (CLEAR); COLOR URINE ORANGE (YELLOW); KETONES URINE NEGATIVE (NEGATIVE); LEUKOCYTE ESTERASE URINE 2+ (NEGATIVE); NITRITE URINE NEGATIVE (NEGATIVE); OCCULT BLOOD URINE TRACE (NEGATIVE); PROTEIN URINE NEGATIVE (NEGATIVE); UROBILINOGEN URINE 0.2 E.U./dL (0.2-1.0)
[2019-03-11 06:44] LABS: METHADONE URINE SCREEN NEGATIVE (NEGATIVE); OPIATES URINE SCREEN NEGATIVE (NEGATIVE)
[2019-03-11 06:45] LABS: *AMPHETAMINES SCREEN URINE NEGATIVE (NEGATIVE); *BARBITURATES SCREEN URINE NEGATIVE (NEGATIVE); *BENZODIAZEPINES SCREEN URINE NEGATIVE (NEGATIVE); *COCAINE SCREEN URINE NEGATIVE (NEGATIVE); CANNABINOID URINE SCREEN NEGATIVE (NEGATIVE); PHENCYCLIDINE URINE SCREEN NEGATIVE (NEGATIVE)
[2019-03-11] MEDS ORDERED: ONDANSETRON HCL 4MG/2ML INJ IV PRN (09:00)
[2019-03-11] MEDS ORDERED: DEXTROSE 50% WATER 50ML SYRINGE IV PRN (09:00)
[2019-03-11] MEDS: BLOOD SUGAR DIAGNOSTIC STRIP TEST SCH ×2 (11:50→17:00)
[2019-03-11] MEDS: INSULIN LISPRO 100 UNITS/ML SUBCUT SCH ×2 (12:12→17:15)
[2019-03-11] MEDS: CLOPIDOGREL 75MG TABLET PO SCH (13:24)
[2019-03-11] MEDS: ENOXAPARIN 40MG/0.4ML SYR SUBCUT SCH (13:25)
[2019-03-11] MEDS: ACETAMINOPHEN 325MG TABLET PO PRN ×2 (15:16→22:16)
[2019-03-11] MEDS: ATORVASTATIN CALCIUM 40MG TABLET PO SCH (22:16)
[2019-03-12] VITALS: BP 125/68
[2019-03-12 02:00] VITALS: BP 92/61
[2019-03-12 04:00] VITALS: BP 118/70
[2019-03-12 07:35] LABS: EOSINOPHILS % 5.8 % (0.0-5.0); HEMATOCRIT. 33.6 % (36.0-48.0); HEMOGLOBIN. 11.6 g/dL (12.0-16.0); LYMPHOCYTES % 32.7 % (20.0-50.0); MEAN CORPUSCULAR HEMOGLOBIN 30.3 pg (28.0-32.0); MEAN PLATELET VOLUME 8.2 fl (7.4-10.4); MONOCYTES % 9.4 % (2.0-8.0); NEUTROPHILS % 51.1 % (40.0-76.0); PLATELET 224 x1000/uL (130-400); RED BLOOD CELL COUNT 3.82 mill/uL (4.2-5.4); RED CELL DISTRIBUTION WIDTH 14.6 % (11.6-14.6)
[2019-03-12 08:00] VITALS: BP 111/71
[2019-03-12] MEDS: INSULIN LISPRO 100 UNITS/ML SUBCUT SCH ×4 (08:00→21:00)
[2019-03-12 08:02] LABS: CHLORIDE 109 mEq/L (98-107)
[2019-03-12] MEDS: CLOPIDOGREL 75MG TABLET PO SCH (09:50)
[2019-03-12] MEDS: ENOXAPARIN 40MG/0.4ML SYR SUBCUT SCH (09:51)
[2019-03-12] MEDS: BLOOD SUGAR DIAGNOSTIC STRIP TEST SCH ×3 (12:33→21:00)
[2019-03-12] MEDS: ACETAMINOPHEN 325MG TABLET PO PRN ×2 (12:56→21:06)
[2019-03-12 16:00] VITALS: BP 123/72
[2019-03-12 20:00] VITALS: BP 125/71
[2019-03-12] MEDS: ATORVASTATIN CALCIUM 40MG TABLET PO SCH (21:02)
[2019-03-13] VITALS: BP 122/70
[2019-03-13 04:00] VITALS: BP 128/59
[2019-03-13 08:00] VITALS: BP 125/68
[2019-03-13] MEDS: INSULIN LISPRO 100 UNITS/ML SUBCUT SCH ×4 (08:00→21:57)
[2019-03-13] MEDS: BLOOD SUGAR DIAGNOSTIC STRIP TEST SCH ×4 (08:27→21:47)
[2019-03-13] MEDS: CLOPIDOGREL 75MG TABLET PO SCH (09:54)
[2019-03-13] MEDS: ENOXAPARIN 40MG/0.4ML SYR SUBCUT SCH (09:54)
[2019-03-13] MEDS: ACETAMINOPHEN 325MG TABLET PO PRN (11:30)
[2019-03-13] MEDS ORDERED: CEFTRIAXONE 1 G PREMIX 50 ML IV SCH (12:00)
[2019-03-13] MEDS: LIDOCAINE HCL 4% CREAM 76GM TUBE TP SCH ×2 (15:17→22:06)
[2019-03-13] MEDS: GABAPENTIN 300MG CAPSULE PO SCH ×2 (15:17→21:58)
[2019-03-13 15:43] VITALS: BP 130/70
[2019-03-13 16:50] LABS: CHLORIDE 105 mEq/L (98-107)
[2019-03-13 16:55] LABS: BASOPHILS % 0.7 % (0.0-2.0); EOSINOPHILS % 2.1 % (0.0-5.0); HEMOGLOBIN. 12.7 g/dL (12.0-16.0); LYMPHOCYTES % 14.8 % (20.0-50.0); MEAN CORPUSCULAR VOLUME 87.4 fL (81.0-99.0); MEAN PLATELET VOLUME 8.5 fl (7.4-10.4); MONOCYTES % 7.8 % (2.0-8.0); NEUTROPHILS % 74.6 % (40.0-76.0); PLATELET 247 x1000/uL (130-400); RED BLOOD CELL COUNT 4.24 mill/uL (4.2-5.4); RED CELL DISTRIBUTION WIDTH 14.7 % (11.6-14.6)
[2019-03-13] MEDS: ATORVASTATIN CALCIUM 40MG TABLET PO SCH (21:58)
[2019-03-14] VITALS: BP 138/74
[2019-03-14 04:00] VITALS: BP 150/85
[2019-03-14] MEDS: GABAPENTIN 300MG CAPSULE PO SCH (06:33)
[2019-03-14] MEDS: LIDOCAINE HCL 4% CREAM 76GM TUBE TP SCH ×2 (06:33→08:02)
[2019-03-14] MEDS: BLOOD SUGAR DIAGNOSTIC STRIP TEST SCH (07:30)
[2019-03-14 08:00] VITALS: BP 134/75
[2019-03-14] MEDS: INSULIN LISPRO 100 UNITS/ML SUBCUT SCH (08:00)
[2019-03-14] MEDS: CLOPIDOGREL 75MG TABLET PO SCH (09:29)
[2019-03-14] MEDS: ENOXAPARIN 40MG/0.4ML SYR SUBCUT SCH (09:29)
[2019-03-14] MEDS ORDERED: LIP40 PO (11:13)
[2019-03-14] MEDS ORDERED: CLOP75TA4 MT (11:13)
[2019-03-14] MEDS ORDERED: GABA-531 PO (11:13)
[2019-03-14 12:00] VITALS: BP 157/96
== END 2019-03-14 17:42 | disposition home health service (06) | DRG 45 ==
LOC: ER 20:00 → 5EST 22:50 → EDBEDREQ 22:53 → EDBEDREQTM 22:53 → ENRESERV 03-11 07:45
PROVIDERS: ADMIT Internal Medicine; ATTEND Internal Medicine
DX: I63.9 Cerebral infarction, unspecified (principal); E87.8 Other disorders of electrolyte and fluid balance, not elsewhere classified; E44.1 Mild protein-calorie malnutrition; I69.351 Hemiplegia and hemiparesis following cerebral infarction affecting right dominant side; R13.10 Dysphagia, unspecified; I10 Essential (primary) hypertension; E11.9 Type 2 diabetes mellitus without complications; E66.9 Obesity, unspecified; E78.00 Pure hypercholesterolemia, unspecified; E78.5 Hyperlipidemia, unspecified; F41.9 Anxiety disorder, unspecified; N28.9 Disorder of kidney and ureter, unspecified; N39.0 Urinary tract infection, site not specified; R47.01 Aphasia; I65.22 Occlusion and stenosis of left carotid artery; R47.1 Dysarthria and anarthria; T45.526A Underdosing of antithrombotic drugs, initial encounter; T39.016A Underdosing of aspirin, initial encounter; Y92.89 Other specified places as the place of occurrence of the external cause; Z68.30 Body mass index [BMI] 30.0-30.9, adult; Z79.899 Other long term (current) drug therapy
CPT/HCPCS: 36415; 70496; 70498; 70551; 71045; 80048; 80053; 80305; 80320; 81003; 82962; 83721; 84484; 84703; 85025; 92523; 92610; 93005; 96360; 96361; 97110; 97162; 97166; 97530; 99291; A4565; J0696; J1650; J1815; Q9967; G0480

== ENCOUNTER 2022-03-28 13:33 | Emergency (ER) | payer MEDICARE, MEDICAID ==
[~2022-03-28] VITALS: Ht 167.6 cm; Wt 101.0 kg
[~2022-03-28 13:33] MED LIST changes: +CLOP-31 MT; +GABA-532 PO; +LIP40 PO; +LISI10TA26 PO; -LISI10TA5 PO
[2022-03-28 15:05] LABS: EOSINOPHILS % 6.2 % (0.0-5.0); HEMATOCRIT. 35.5 % (36.0-48.0); HEMOGLOBIN. 11.9 g/dL (12.0-16.0); LYMPHOCYTES % 18.7 % (20.0-50.0); MEAN CORPUSCULAR HEMOGLOBIN 29.4 pg (28.0-32.0); MEAN CORPUSCULAR VOLUME 87.8 fL (81.0-99.0); MEAN PLATELET VOLUME 8.2 fl (7.4-10.4); MONOCYTES % 14.7 % (2.0-8.0); NEUTROPHILS % 59.4 % (40.0-76.0); PLATELET 273 x1000/uL (130-400); RED BLOOD CELL COUNT 4.04 mill/uL (4.2-5.4); RED CELL DISTRIBUTION WIDTH 14.9 % (11.6-14.6)
[2022-03-28 15:06] LABS: CHLORIDE 108 mEq/L (98-107)
[2022-03-28 19:00] VITALS: BP 136/69
== END 2022-03-28 21:16 | disposition home or self-care (01) ==
LOC: ER 13:33
DX: R58 Hemorrhage, not elsewhere classified (principal); G89.18 Other acute postprocedural pain; F41.9 Anxiety disorder, unspecified; E11.9 Type 2 diabetes mellitus without complications; E78.00 Pure hypercholesterolemia, unspecified; I10 Essential (primary) hypertension; Z86.73 Personal history of transient ischemic attack (TIA), and cerebral infarction without residual deficits; Z79.899 Other long term (current) drug therapy
CPT/HCPCS: 36415; 73552; 73700; 76857; 80053; 85025; 99285

== ENCOUNTER 2022-11-29 21:26 | Inpatient (IN) | payer MEDICARE, MEDICAID ==
[~2022-11-29] VITALS: Ht 160 cm; Wt 76.5 kg
[2022-11-29 22:42] LABS: CLARITY URINE CLEAR (CLEAR); COLOR URINE YELLOW (YELLOW); GLUCOSE URINE 1+ (NEGATIVE); KETONES URINE TRACE (NEGATIVE); LEUKOCYTE ESTERASE URINE NEGATIVE (NEGATIVE); NITRITE URINE NEGATIVE (NEGATIVE); OCCULT BLOOD URINE NEGATIVE (NEGATIVE); PROTEIN URINE 2+ (NEGATIVE); SPECIFIC GRAVITY URINE 1.016 (1.005-1.030)
[2022-11-29 22:46] LABS: RBC URINE NONE SEEN /hpf (0-2); WBC URINE 0-2 /hpf (0-2); YEAST URINE NONE SEEN
[2022-11-29 22:57] LABS: BACTERIA URINE 2+; SQUAMOUS EPITHELIAL CELL URINE FEW /lpf (RARE/1+)
[2022-11-29 23:02] LABS: UCG QC LOT# 620457; UCG SCREEN NEGATIVE
[2022-11-29 23:44] LABS: ALBUMIN 3.9 g/dL (3.4-5.0); CALCIUM 8.9 mg/dL (8.5-10.1); CHLORIDE 104 mEq/L (98-107); INDEX HEMOLYSI 1 (1-3); INDEX ICTERIC 1 (1-4); INDEX LIPEMIC 1 (1-3); POTASSIUM 4.8 mEq/L (3.5-5.1); SODIUM 134 mEq/L (136-145); UREA NITROGEN BLOOD 16 mg/dL (7-21)
[2022-11-29 23:49] LABS: BASOPHILS % 0.5 % (0.0-2.0); EOSINOPHILS % 1.9 % (0.0-5.0); HEMATOCRIT. 40.1 % (36.0-48.0); HEMOGLOBIN. 13.6 g/dL (12.0-16.0); LYMPHOCYTES % 8.2 % (20.0-50.0); MEAN CORPUSCULAR HEMOGLOBIN 29.3 pg (28.0-32.0); MEAN CORPUSCULAR HGB CONC 33.9 g/dL (31.0-37.0); MEAN CORPUSCULAR VOLUME 86.6 fL (81.0-99.0); MEAN PLATELET VOLUME 8.8 fl (7.4-10.4); MONOCYTES % 6.4 % (2.0-8.0); PLATELET 254 x1000/uL (130-400); RED BLOOD CELL COUNT 4.64 mill/uL (4.2-5.4); RED CELL DISTRIBUTION WIDTH 14.7 % (11.6-14.6); WHITE BLOOD COUNT 9.8 x1000/uL (4.5-11.0)
[2022-11-29 23:53] LABS: ALANINE AMINOTRANSFERASE 44 IU/L (13-61); ASPARTATE AMINOTRANSFERASE 18 IU/L (15-37); BILIRUBIN TOTAL 0.6 mg/dL (0.1-1.0); CARBON DIOXIDE 28 mEq/L (21-32); CREATININE 0.8 mg/dL (0.6-1.3); GLUCOSE 233 mg/dL (70-105); TROPONIN I HIGH SENSITIVITY 14 ng/L (<54)
[2022-11-30] MEDS ORDERED: MAGNESIUM/ALUMINUM HYDROXIDE/SIMETHICONE 30ML UDC PO ONE
[2022-11-30] MEDS ORDERED: MAGNESIUM/ALUMINUM HYDROXIDE/SIMETHICONE 30ML UDC PO NR (02:30)
[2022-11-30] MEDS ORDERED: FAMOTIDINE 20MG TABLET PO NR (02:45)
[2022-11-30] MEDS ORDERED: MORPHINE SULFATE 10 MG/ML CPJ IM ONE (02:45)
[2022-11-30] MEDS ORDERED: FAMOTIDINE 20MG TABLET PO ONE (02:45)
[2022-11-30] MEDS ORDERED: MAGNESIUM/ALUMINUM HYDROXIDE/SIMETHICONE 30ML UDC PO PRN (04:45)
[2022-11-30] MEDS ORDERED: DIPHENHYDRAMINE 50MG/ML VIAL IV PRN (04:45)
[2022-11-30] MEDS ORDERED: DOCUSATE SODIUM 100MG CAPSULE PO PRN (04:45)
[2022-11-30] MEDS ORDERED: ONDANSETRON HCL 4MG/2ML INJ IV PRN (04:45)
[2022-11-30] MEDS ORDERED: CLONIDINE 0.1MG TABLET PO PRN (04:45)
[2022-11-30] MEDS ORDERED: ACETAMINOPHEN 325MG TABLET PO PRN ×2 (04:45)
[2022-11-30] MEDS ORDERED: TICA90TA PO ×3 (04:54→18:49)
[2022-11-30] MEDS ORDERED: SPIR25TA6 PO ×3 (04:54→18:47)
[2022-11-30] MEDS ORDERED: FURO20TA4 PO ×3 (04:54→18:47)
[2022-11-30] MEDS ORDERED: ASPI-1406 PO ×2 (04:54→12:05)
[2022-11-30] MEDS ORDERED: LISI20TA31 PO ×2 (04:54→05:06)
[2022-11-30] MEDS ORDERED: INSU100I24 SUBCUT (04:54)
[2022-11-30] MEDS ORDERED: INSNOV SUBCUT (04:54)
[2022-11-30] MEDS ORDERED: ESCI-7 PO ×3 (04:54→18:43)
[2022-11-30] MEDS: TICAGRELOR 90 MG TABLET PO SCH ×2 (05:00→17:15)
[2022-11-30] MEDS: SPIRONOLACTONE 25MG TABLET PO SCH (05:15)
[2022-11-30] MEDS ORDERED: KETOROLAC 30MG/ML VIAL IV PRN (05:15)
[2022-11-30] MEDS: FUROSEMIDE 20MG TABLET PO SCH ×2 (05:15→09:40)
[2022-11-30] MEDS ORDERED: DEXTROSE 50% WATER 50ML SYRINGE IV PRN ×2 (05:30→18:15)
[2022-11-30] MEDS ORDERED: INSULIN LISPRO (HUMALOG) 300UNITS/3ML VIAL SUBCUT SCH (06:30)
[2022-11-30] MEDS: PANTOPRAZOLE 40MG DR TABLET PO SCH ×2 (07:10→09:40)
[2022-11-30] MEDS: BLOOD SUGAR DIAGNOSTIC STRIP TEST SCH ×6 (07:10→20:15)
[2022-11-30 08:00] VITALS: BP 139/64; PULSE 79; RESP 20; TEMP 97.6
[2022-11-30] MEDS ORDERED: INSULIN ASPART 22 UNIT SUBCUT SCH (09:00)
[2022-11-30] MEDS: LISINOPRIL 20MG TABLET PO SCH (09:39)
[2022-11-30] MEDS: ASPIRIN 81MG EC TABLET PO SCH (09:39)
[2022-11-30] MEDS: GABAPENTIN 300MG CAPSULE PO SCH ×3 (09:39→22:26)
[2022-11-30] MEDS: INSULIN GLARGINE 100 UNITS/ML SUBCUT SCH (09:43)
[2022-11-30 10:00] VITALS: BP 139/64; PULSE 79; RESP 18; TEMP 97.6
[2022-11-30 12:00] VITALS: BP 117/78; PULSE 75; RESP 18; TEMP 97.9
[2022-11-30] MEDS ORDERED: CLOP75TA33 PO (12:05)
[2022-11-30] MEDS ORDERED: CHOL500063 (12:05)
[2022-11-30] MEDS ORDERED: PANT20TA17 PO (12:05)
[2022-11-30] MEDS ORDERED: EMPA10TA PO ×2 (12:05→18:45)
[2022-11-30] MEDS ORDERED: METF-416 PO (12:05)
[2022-11-30] MEDS ORDERED: IBUP-2030 PO ×2 (12:05→18:44)
[2022-11-30] MEDS ORDERED: DULO20CA18 PO ×2 (12:05→18:48)
[2022-11-30] MEDS ORDERED: ONDA4TAB50 PO ×2 (12:05→18:42)
[2022-11-30] MEDS: METOCLOPRAMIDE HCL 10MG/2ML VIAL IV SCH ×3 (14:10→20:10)
[2022-11-30 16:00] VITALS: BP 108/59; PULSE 71; RESP 18; TEMP 96.9
[2022-11-30 17:55] LABS: *AMPHETAMINES SCREEN URINE NEGATIVE (NEGATIVE); *BARBITURATES SCREEN URINE NEGATIVE (NEGATIVE); *BENZODIAZEPINES SCREEN URINE NEGATIVE (NEGATIVE); *COCAINE SCREEN URINE NEGATIVE (NEGATIVE); CANNABINOID URINE SCREEN NEGATIVE (NEGATIVE); ECSTASY MDMA SCREEN URINE NEGATIVE (NEGATIVE); OPIATES URINE SCREEN PRESUMTIVE POSITIVE (NEGATIVE); PHENCYCLIDINE URINE SCREEN NEGATIVE (NEGATIVE)
[2022-11-30] MEDS: INSULIN LISPRO 100 UNITS/ML SUBCUT SCH ×2 (18:31→20:15)
[2022-11-30 18:38] LABS: BASOPHILS % 0.6 % (0.0-2.0); EOSINOPHILS % 3.9 % (0.0-5.0); HEMATOCRIT. 36.5 % (36.0-48.0); HEMOGLOBIN. 12.4 g/dL (12.0-16.0); LYMPHOCYTES % 19.4 % (20.0-50.0); MEAN CORPUSCULAR HEMOGLOBIN 29.4 pg (28.0-32.0); MEAN CORPUSCULAR VOLUME 86.5 fL (81.0-99.0); MONOCYTES % 12.6 % (2.0-8.0); NEUTROPHILS % 63.5 % (40.0-76.0); PLATELET 237 x1000/uL (130-400); RED BLOOD CELL COUNT 4.22 mill/uL (4.2-5.4); RED CELL DISTRIBUTION WIDTH 14.2 % (11.6-14.6); WHITE BLOOD COUNT 7.2 x1000/uL (4.5-11.0)
[2022-11-30 18:42] LABS: CHLORIDE 99 mEq/L (98-107); INDEX HEMOLYSI 1 (1-3); INDEX ICTERIC 1 (1-4); INDEX LIPEMIC 1 (1-3); POTASSIUM 4.3 mEq/L (3.5-5.1); SODIUM 136 mEq/L (136-145)
[2022-11-30] MEDS ORDERED: BLOO-1657 XX (18:42)
[2022-11-30] MEDS ORDERED: EZET10TA81 PO (18:42)
[2022-11-30] MEDS ORDERED: NEED-123 SUBCUT (18:44)
[2022-11-30] MEDS ORDERED: PROT20 PO (18:45)
[2022-11-30] MEDS ORDERED: CLOP-31 PO (18:46)
[2022-11-30] MEDS ORDERED: ATOR-2 PO (18:50)
[2022-11-30] MEDS ORDERED: CHOL500010 PO (18:51)
[2022-11-30 18:52] LABS: CREATINE KINASE MB FRACTION 1.4 ng/mL (0.5-3.6)
[2022-11-30] MEDS ORDERED: ASPI-1497 PO (18:53)
[2022-11-30 18:59] LABS: ALANINE AMINOTRANSFERASE 45 IU/L (13-61); ALBUMIN 3.4 g/dL (3.4-5.0); ASPARTATE AMINOTRANSFERASE 22 IU/L (15-37); BILIRUBIN TOTAL 0.5 mg/dL (0.1-1.0); CALCIUM 8.9 mg/dL (8.5-10.1); CARBON DIOXIDE 30 mEq/L (21-32); CHOLESTEROL 213 mg/dL (<200); CREATININE 1.4 mg/dL (0.6-1.3); GLUCOSE 250 mg/dL (70-105); HDL CHOLESTEROL 39 mg/dL (40-59); LDL CHOLESTEROL 106 mg/dL (5-100); PHOSPHORUS 2.6 mg/dL (2.5-4.9); PROTEIN TOTAL 6.7 g/dL (6.0-8.3); T4 FREE 1.17 ng/dL (0.76-1.46); TRIGLYCERIDE 579 mg/dL (0-150); UREA NITROGEN BLOOD 20 mg/dL (7-21)
[2022-11-30 19:54] VITALS: BP 103/47; PULSE 68; RESP 15; TEMP 97.7
[2022-11-30] MEDS ORDERED: FAMOTIDINE 20MG TABLET PO SCH (21:00)
[2022-11-30] MEDS: ATORVASTATIN CALCIUM 40MG TABLET PO SCH (22:25)
[2022-12-01] VITALS (7 sets, daily range): BP systolic 91–126; BP diastolic 45–58; PULSE 63–85; RESP 13–18; TEMP 96.6–98.4
[2022-12-01] MEDS: GABAPENTIN 300MG CAPSULE PO SCH ×3 (06:00→21:40)
[2022-12-01] MEDS: BLOOD SUGAR DIAGNOSTIC STRIP TEST SCH ×4 (07:05→21:36)
[2022-12-01] MEDS: METOCLOPRAMIDE HCL 10MG/2ML VIAL IV SCH ×4 (07:05→21:40)
[2022-12-01] MEDS: PANTOPRAZOLE 40MG DR TABLET PO SCH (07:05)
[2022-12-01 07:08] LABS: BASOPHILS % 0.6 % (0.0-2.0); EOSINOPHILS % 4.3 % (0.0-5.0); HEMATOCRIT. 36.4 % (36.0-48.0); HEMOGLOBIN. 12.3 g/dL (12.0-16.0); LYMPHOCYTES % 22.2 % (20.0-50.0); MEAN CORPUSCULAR HEMOGLOBIN 29.2 pg (28.0-32.0); MEAN CORPUSCULAR HGB CONC 33.7 g/dL (31.0-37.0); MEAN CORPUSCULAR VOLUME 86.5 fL (81.0-99.0); MEAN PLATELET VOLUME 8.9 fl (7.4-10.4); MONOCYTES % 11.9 % (2.0-8.0); PLATELET 214 x1000/uL (130-400); RED BLOOD CELL COUNT 4.21 mill/uL (4.2-5.4); RED CELL DISTRIBUTION WIDTH 14.4 % (11.6-14.6); WHITE BLOOD COUNT 6.5 x1000/uL (4.5-11.0)
[2022-12-01] MEDS: INSULIN LISPRO 100 UNITS/ML SUBCUT SCH ×6 (07:09→21:42)
[2022-12-01 07:45] LABS: POTASSIUM 4.6 mEq/L (3.5-5.1)
[2022-12-01 07:53] LABS: CALCIUM 8.9 mg/dL (8.5-10.1); CREATININE 2.1 mg/dL (0.6-1.3); PHOSPHORUS 2.9 mg/dL (2.5-4.9)
[2022-12-01] MEDS ORDERED: SODIUM CHLORIDE 0.9% 500 ML IV SCH (08:00)
[2022-12-01] MEDS: SPIRONOLACTONE 25MG TABLET PO SCH ×2 (08:51→09:00)
[2022-12-01] MEDS: ASPIRIN 81MG EC TABLET PO SCH (08:51)
[2022-12-01] MEDS: TICAGRELOR 90 MG TABLET PO SCH ×2 (08:51→18:05)
[2022-12-01] MEDS: FUROSEMIDE 20MG TABLET PO SCH (08:52)
[2022-12-01] MEDS: LISINOPRIL 20MG TABLET PO SCH (08:52)
[2022-12-01] MEDS: INSULIN GLARGINE 100 UNITS/ML SUBCUT SCH (11:48)
[2022-12-01] MEDS: ATORVASTATIN CALCIUM 40MG TABLET PO SCH (21:40)
[2022-12-01] MEDS ORDERED: MELATONIN 3MG TABLET PO PRN (22:30)
[2022-12-02 04:00] VITALS: BP 100/40; PULSE 71; RESP 16; TEMP 97.5
[2022-12-02] MEDS: METOCLOPRAMIDE HCL 10MG/2ML VIAL IV SCH ×2 (06:48→12:04)
[2022-12-02] MEDS: GABAPENTIN 300MG CAPSULE PO SCH ×2 (06:49→15:49)
[2022-12-02] MEDS: BLOOD SUGAR DIAGNOSTIC STRIP TEST SCH ×3 (06:49→16:07)
[2022-12-02] MEDS: INSULIN LISPRO 100 UNITS/ML SUBCUT SCH ×6 (06:54→16:08)
[2022-12-02 08:00] VITALS: BP 100/32; PULSE 71; RESP 16; TEMP 97.5
[2022-12-02 08:34] LABS: HEMATOCRIT 36.7 % (36.0-48.0); HEMOGLOBIN 12.7 g/dL (12.0-16.0); MEAN CORPUSCULAR HEMOGLOBIN 29.6 pg (28.0-32.0); MEAN CORPUSCULAR HGB CONC 34.6 g/dL (31.0-37.0); MEAN CORPUSCULAR VOLUME 85.6 fL (81.0-99.0); PLATELET 194 x1000/uL (130-400); RED BLOOD CELL COUNT 4.28 mill/uL (4.2-5.4); RED CELL DISTRIBUTION WIDTH 14.3 % (11.6-14.6); WHITE BLOOD COUNT 6.4 x1000/uL (4.5-11.0)
[2022-12-02] MEDS: TICAGRELOR 90 MG TABLET PO SCH (08:58)
[2022-12-02] MEDS: ASPIRIN 81MG EC TABLET PO SCH (08:58)
[2022-12-02] MEDS: SPIRONOLACTONE 25MG TABLET PO SCH ×2 (08:59→09:00)
[2022-12-02] MEDS ORDERED: FAMOTIDINE 20MG TABLET PO SCH (09:00)
[2022-12-02 09:32] LABS: POTASSIUM 3.9 mEq/L (3.5-5.1)
[2022-12-02 09:38] LABS: CALCIUM 7.9 mg/dL (8.5-10.1)
[2022-12-02] MEDS: INSULIN GLARGINE 100 UNITS/ML SUBCUT SCH (11:01)
[2022-12-02 12:00] VITALS: BP 114/41; PULSE 77; RESP 16; TEMP 97.5
[2022-12-02] MEDS ORDERED: INSHUMSS SUBCUT (12:52)
[2022-12-02] MEDS ORDERED: INSU100I28 SQ (12:52)
[2022-12-02 13:01] VITALS: BP 114/41; PULSE 77; TEMP 97.5; O2SAT 95
== END 2022-12-02 16:50 | disposition home or self-care (01) | DRG 73 ==
LOC: ER 21:26 → MICUSO 11-30 03:23 → 8WST 11-30 07:10
PROVIDERS: ADMIT Internal Medicine; ATTEND Internal Medicine
DX: E11.43 Type 2 diabetes mellitus with diabetic autonomic (poly)neuropathy (principal); N17.0 Acute kidney failure with tubular necrosis; E78.00 Pure hypercholesterolemia, unspecified; I10 Essential (primary) hypertension; F41.9 Anxiety disorder, unspecified; K59.09 Other constipation; Z79.4 Long term (current) use of insulin; Z79.02 Long term (current) use of antithrombotics/antiplatelets; Z79.82 Long term (current) use of aspirin; Z86.73 Personal history of transient ischemic attack (TIA), and cerebral infarction without residual deficits; Z79.899 Other long term (current) drug therapy; K31.84 Gastroparesis
CPT/HCPCS: 36415; 76705; 80048; 80053; 80061; 80305; 81003; 81025; 82550; 82553; 82962; 83036; 83735; 83880; 84100; 84439; 84443; 84484; 85025; 85027; 93005; 99285; J1815; J1885; J2270; J2765; J8499